=== PATIENT | female | born 1985 | race Caucasian/White ===

== ENCOUNTER 2021-06-03 05:19 | Day surgery (SDC) | payer MEDICAID ==
[2021-06-01 13:18] LABS: BASOPHILS # (AUTO) 0.1 X10'3 (0-0.2); BASOPHILS % (AUTO) 0.8 % (0-1); EOSINOPHILS # (AUTO) 0.2 X10'3 (0-0.9); EOSINOPHILS % (AUTO) 2.5 % (0-6); LYMPHOCYTES # (AUTO) 1.6 X10'3 (1.1-4.8); MEAN CORPUSCULAR HEMOGLOBIN 26.6 PG (27.0-31.0); MEAN CORPUSCULAR HGB CONC 33.1 g/dL (33.0-36.5); MEAN CORPUSCULAR VOLUME 80.5 FL (78-98); MEAN PLATELET VOLUME 7.4 FL (7.4-10.4); MONOCYTES # (AUTO) 0.6 X10'3 (0-0.9); MONOCYTES % (AUTO) 7.7 % (2-12); NEUTROPHILS # (AUTO) 5.5 X10'3 (1.8-7.7); PRE OP HEMATOCRIT 39.4 % (35.0-45.0); PRE OP PLATELET COUNT 358 X10'3 (140-440); RED BLOOD COUNT 4.89 X10'6 (4.20-5.60); RED CELL DISTRIBUTION WIDTH 14.8 % (11.5-14.5)
[2021-06-01 13:35] LABS: ALBUMIN 3.6 G/DL (3.4-5.0); ALBUMIN/GLOBULIN RATIO 0.8 (1.1-1.5); ALKALINE PHOSPHATASE 113 IU/L (46-116); BLOOD UREA NITROGEN 11 MG/DL (7-18); BUN/CREATININE RATIO 15.1 (6.6-38.0); CALCIUM 9.3 MG/DL (8.5-10.1); CHLORIDE 105 MMOL/L (99-107); CREATININE 0.73 MG/DL (0.40-0.90); PRE OP ALT 69 U/L (30-65); PRE OP ANION GAP 10 (8-16); PRE OP AST 47 U/L (10-37); PRE OP BILIRUB, TOTAL 0.4 MG/DL (0.0-1.0); PRE OP GLUCOSE 97 MG/DL (70-104); PRE OP POTASSIUM 3.8 MMOL/L (3.4-5.1); PRE OP SODIUM 141 MMOL/L (135-145); TOTAL CARBON DIOXIDE 25.8 MMOL/L (24-32); eGFR 90 ML/MIN
[2021-06-01 13:36] LABS: HCG SERUM QL NEGATIVE
[2021-06-03] VITALS (8 sets, daily range): BP systolic 103–127; BP diastolic 59–77
[~2021-06-03] VITALS: Ht 188 cm; Wt 188.2 kg
[~2021-06-03 05:19] MED LIST: AMIT25TA9 PO; BACL10TA2 PO; INDLA60C PO; LIOT5TAB10 PO; THYR120T2 PO; THYR60TA2 PO; ringers solution, lacted 1,000 ML IV SCH
[2021-06-03] MEDS ORDERED: famotidine 20mg tablet PO ONE (05:30)
[2021-06-03] MEDS ORDERED: vancomycin 1,500 MG in NS 300ml IV soln IV ONE (05:30)
[2021-06-03] MEDS ORDERED: clindamycin-Cleocin 900mg/D5W 50 ML IV ONE (05:30)
[2021-06-03] MEDS ORDERED: DOCUMENT DATE & TIME OF BETA-BLOCKER PO ONE (05:30)
[2021-06-03] MEDS ORDERED: BUPIVAcaine/PF 2.5 mg/ml (0.25%) 30ml vial ONE (06:55)
[2021-06-03] MEDS ORDERED: triamcinolone acetonide 40mg/ml inj ONE (06:55)
[2021-06-03] MEDS ORDERED: sevoflurane 250ml liquid IH ONE (07:07)
[2021-06-03] MEDS ORDERED: fentaNYL/PF 50MCG/1 ML 2ML syringe ONE (07:12)
[2021-06-03] MEDS ORDERED: midazolam 1 mg/ML 2ml injection ONE (07:17)
[2021-06-03] MEDS ORDERED: ondansetron/PF 4mg/2ml inj IV PRN (07:30)
[2021-06-03] MEDS ORDERED: proCHLORperazine 10 MG/2 ml inj IV PRN (07:30)
[2021-06-03] MEDS ORDERED: morphine 4 MG/ML inj SYRINge IV PRN (07:30)
[2021-06-03] MEDS ORDERED: acetaminophen 1,000mg/100ml IV 100 ML IV PRN (07:30)
[2021-06-03] MEDS ORDERED: ketorolac trometh. 30mg/ml inj. IV ONE (07:30)
[2021-06-03] MEDS ORDERED: hydrALAZINE 20mg/ml inj. IV PRN (07:30)
[2021-06-03] MEDS ORDERED: labetalol 20mg/4ml (5mg/ml) syringe IV PRN (07:30)
[2021-06-03] MEDS ORDERED: morphine 2 MG/ML inj. syringe IV PRN (07:30)
[2021-06-03] MEDS ORDERED: ringers solution, lacted 1,000 ML IV SCH (07:30)
[2021-06-03] MEDS ORDERED: meperidine/PF 25mg/ml syringe IV PRN ×3 (07:30)
[2021-06-03] MEDS ORDERED: LIDOcaine 2% (20mg/ml) 5ml vial ONE (07:34)
[2021-06-03] MEDS ORDERED: propofol inj 20 ML IV ONE ×2 (07:34)
[2021-06-03] MEDS ORDERED: dexamethasone sod phosphate 4mg/ml inj. ONE (07:35)
[2021-06-03] MEDS ORDERED: ondansetron/PF 4mg/2ml inj ONE (07:35)
--- NOTE | 2021-06-03 08:27 | NUR ---
Received from OR via , accompanied by Anesthesiologist DR REBOLLEDO and report given by Anesthesiolgist. PT PRESENTS WITH 20G LEFT HAND, LEFT KNEE DRESSING DY AND INTACT, VSS. Addendum: 06/03/21 at 1640 by Sujey Cheng RN, RN Amended: Links added.
--- NOTE | 2021-06-03 09:27 | NUR ---
PT READY FOR DC, VSS IV REMOVED CANULA INTACT. DC INSTRUCTIONS REVIEWED WITH PT, PT VERBALIZED UNDERSTANDING WITH NO FURTHER QUESTIONS AT THIS TIME. PT WHEELED OUT IN WHEELCHAIR TO PT AND PRIVATE VEHICLE. Addendum: 06/03/21 at 0940 by Sujey Cheng RN, RN Amended: Links added.
== END 2021-06-03 09:27 | disposition home or self-care (01) ==
LOC: PAS 05:19
PROVIDERS: ATTEND Orthopaedic Surgery
DX: S83.232A Complex tear of medial meniscus, current injury, left knee, initial encounter (principal); S83.272A Complex tear of lateral meniscus, current injury, left knee, initial encounter; M94.262 Chondromalacia, left knee; M17.0 Bilateral primary osteoarthritis of knee; E06.3 Autoimmune thyroiditis; F32.A Depression, unspecified; I10 Essential (primary) hypertension; E66.01 Morbid (severe) obesity due to excess calories; Z68.43 Body mass index [BMI] 50.0-59.9, adult; E11.59 Type 2 diabetes mellitus with other circulatory complications; Z98.890 Other specified postprocedural states; Z20.822 Contact with and (suspected) exposure to COVID-19; Z79.899 Other long term (current) drug therapy; Z79.84 Long term (current) use of oral hypoglycemic drugs; Z88.0 Allergy status to penicillin; X58.XXXA Exposure to other specified factors, initial encounter; Y93.89 Activity, other specified; Y92.89 Other specified places as the place of occurrence of the external cause; Y99.8 Other external cause status
CPT/HCPCS: 29873; 29879; 29880; 36415; 80053; 82948; 84703; 85025; 87635; 93005; C9803; J1100; J2250; J2405; J2704; J3010; J3301; J3370; J3490; J7040; J7120; Z7506; Z7508; Z7512; A4215; A4618; A6250; A6449; A7000